=== PATIENT | female | born 1995 | race Caucasian/White ===

== ENCOUNTER 2020-09-30 09:27 | Observation (INO) | payer OTHER ==
[2020-09-30] MEDS ORDERED: IV RINGERS,LACTATED 1000ML 1,000 ML IV SCH (10:00)
[2020-09-30] MEDS ORDERED: ACETAMINOPHEN 500 MG TABLET PO PRN (10:30)
--- NOTE | 2020-09-30 11:53 | PDOC1 ---
PRIVACY ANALYST H&P Date of Admission: Date of Admission: Sep 30, 2020 at 09:27 History of Present Illness: EDC: 01/08/21 LMP: unknown 25y @ 25.5 who presented to the [facility] ER with dysuria, right flank pain and abd cramping. She states that she developed the symptoms of a UTI about 3 days ago. Over the course of these days the symptoms got progressively worse. She attempted an OTC med for a UTI, but the pain was so bad she had to come into the ER. She did not have any abx from her provider b/c she had just been txed for a yeast infection with Monostat 2wks prior. States over the last day she has had some mild nausea but no vomiting and right flank pain. The pt has had no fever or chills. In the ER she was given a dose of Rochephin and transferred to [place] for eval and tx. She was under the impression that she may undergo a MRI to r/o a stone. Explained that obtaining a MRI would not have much influence on her management. Discussed outpt vs inpt management of a cystitis/pyelonephritis. The pt states that her abd cramping is somewhat worse than her flank pain. She has no GI symptoms. The pt gets her care with Yeni Garza CNM. PMH: [place] PSH: Denies Meds: PNV All: NKDA OBHx: 36wk , 2 x TSVD [employer]: 15yo / regular SH: no tob, no EtOH FH: kidney dz Medications: Meds: Current Medications Medications (Trade) Dose Ordered Sig/Dalia Route PRN Reason Start Time Stop Time Status Last Admin Dose Admin Ringer's Solution 1,000 ml @ 50 mls/hr Q20H IV 09/30/20 10:00 09/30/20 10:59 Acetaminophen (Tylenol) 500 mg PRN Q6HRS PRN PO TEMP > 100.3'F 09/30/20 10:30 09/30/20 10:59 Allergies: Coded Allergies: No Known Drug Allergies (Unverified , 09/30/20) Physical Exam: PE: GENERAL: No apparent distress. Alert and oriented. HEENT: Head normocephalic, atraumatic. NECK: Supple LUNGS: Clear to auscultation. HEART: RRR, S1, S2 present, pulses intact ABDOMEN: Soft, positive bowel sounds. EXTREMITIES: No cyanosis or edema. NEUROLOGIC: Normal speech, normal tone PSYCHIATRIC: Normal affect, normal mood. SKIN: No ulceration. FHT: 140s +10x10 acels/no decels/mLTV [place]: quiet Labs: WBC 12.5 (Neut % 86) both elevated Hgb 11.8 BUN 7 Cr 0.5 Assessment & Plan: A/P 25y @ 25.5 with dysuria, right flank pain and abd cramping 1.) Dysuria and right flank pain most likely cystitis/pyelonephritis, slightly elevated WBC with left shift. Will manage as outpatient with Macrobid. Has already received one dose of Rocephin. UA should reflex to culture at [place]. If sensitivities different than Macrobid will call pt. Ddx would include stones, but typically would tx symptomatically. Since that would be the case and renal fxn nml will not perform any additional imaging. 2.) H/o PTD 36wks 3.) Fetus reassuring 4.) GBS unknown VALDO LOPEZ MD Sep 30, 2020 11:53
[2020-09-30] MEDS ORDERED: NITR100C62 PO (11:54)
== END 2020-09-30 13:00 | disposition home or self-care (01) ==
LOC: 3 SO LND 09:27
PROVIDERS: ADMIT Obstetrics & Gynecology; ATTEND Obstetrics & Gynecology
DX: O26.892 Other specified pregnancy related conditions, second trimester (principal); R30.0 Dysuria; O98.82 Other maternal infectious and parasitic diseases complicating childbirth; Z3A.25 25 weeks gestation of pregnancy; Z87.891 Personal history of nicotine dependence
CPT/HCPCS: 59025; 96360; 96361; G0378; G0379; J7120